=== PATIENT | female | born 1955 | race Caucasian/White ===

== ENCOUNTER 2023-01-07 14:59 | Observation (INO) | payer BC, SELFPAY ==
[2023-01-07] VITALS (12 sets, daily range): BP systolic 100–130; BP diastolic 48–93; PULSE 62–111; RESP 10–18; TEMP 36.1–36.9; O2SAT 94–100; BMI 20.9
--- NOTE | 2023-01-07 | XR_ITS ---
WS: [id number] EXAMINATION: XR tibia fibula RT 2V [id number] REASON FOR EXAM: OR PICS COMPARISON: Previous study ORDER DATE: 01/07/2023 12:00 AM FINDINGS: There is complex comminuted spiraling fractures involving the distal tibia and fibula with moderate diastases. Numerous small fragments are associated with the tibial fracture. Reduction and external f ixator placement occurring with fluoroscopy time 71.3 seconds IMPRESSION: External fixator placement.
--- NOTE | 2023-01-07 15:07 | ED_ITS ---
HPI - Trauma General: Chief Complaint: Trauma Stated Complaint: trauma from horse rt leg Time Seen by Provider: 01/07/23 15:16 Source: patient and EMS Mode of arrival: EMS Limitations: no limitations History of Present Illness: Patient was transported to the emergency department by EMS. She was riding with a group today and her horse tripped on underbrush and went down on his right side trapping her right leg in the stirrup. She states that she eventually got herself out of the stirrup but had a deformity to her leg and could not bear weight. Eventually EMS was able to make her way out to her location and immobilize it in a position of comfort. She was provided analgesics in route. She denies any other pain or discomfort. She did not hit her head or suffer loss of consciousness. Location - Extremities: Right: lower leg Associated symptoms: Denies abdominal pain, chest pain, chills, fever(s), headache(s) or syncope Review of Systems Const: Denies: fever(s) or chills Eyes: Denies: change in vision ENMT: Denies: throat pain or odynophagia Card: Denies: chest pain, palpitations, syncope or pre-syncope Resp: Denies: dyspnea, productive cough or non-productive cough GI: Denies: abdominal pain : Denies: flank pain, difficulty voiding or dysuria Musc: Reports: extremity pain and extremity swelling Skin/Breast: Denies: rash or pruritus Neuro: Denies: headache(s), numbness in extremities or weakness in extremities Physical Exam Narrative: EXAM NARRATIVE: The patient is alert and appears to be reasonably comfortable. She answers questions in a goal-directed fashion. Const: COMMON NORMALS: no acute distress, average body habitus, patient oriented x3 and alert GENERAL APPEARANCE: cooperative HENMT: COMMON NORMALS: normocephalic and atraumatic HEAD & SCALP: normocephalic and atraumatic Eye: COMMON NORMALS: Equal, round and reactive pupils present, EOMs intact bilaterally and conjunctivae normal CONJUNCTIVA: Yes conjunctivae normal PUPIL: Yes Equal, round and reactive pupils present Neck/C-Spine: COMMON NORMALS: full ROM CERVICAL SPINE: No Cervical spine tenderness, No step off deformity, No Paracervical muscle tenderness, No Paracervical spasm and No Trapezius muscle tenderness OTHER: Cervical spine is normal in appearance. She has no midline tenderness or step- off. She is able to range her neck 45 degrees to the left and right and forward bend 15 degrees and extend without any discomfort or pain. Chest: COMMONS NORMALS: normal inspection of the chest and normal palpation of entire chest wall Resp: COMMON NORMALS: normal respiratory effort, No retractions, No use of accessory muscles and clear to auscultation bilaterally AUSCULTATION: clear to auscultation bilaterally Cardio: COMMON NORMALS: regular rate, regular rhythm, No murmurs present (Cardio) and Peripheral pulses 2+ throughout RATE: regular rate RHYTHM: regular rhythm PERIPHERAL PULSES: Peripheral pulses 2+ throughout GI: COMMON NORMALS: Normal to inspection, nondistended, normoactive bowel sounds present and Soft to palpation PALPATION: Yes Soft to palpation : COMMON NORMALS: Yes no CVA tenderness BLADDER/KIDNEY EXAM: Yes no CVA tenderness Back/Pelvis: COMMON NORMALS: no CVA tenderness, thoracic and lumbar spine normal to inspection, no thoracic nor lumbar tenderness and thoraco-lumbar ROM normal PELVIS: Yes no pain with anterior-posterior compression and Yes no pain with lateral compression SACROILIAC JOINTS: Yes SI joints normal Extremity: COMMON NORMALS: capillary refill normal NARRATIVE EXTREMITY EXAM: She has deformity of the right lower extremity with a intact skin. She has good capillary refill and intact sensation GENERAL: Yes normal exam except as noted EXTREMITY IMAGE (FRONT): 1. Deformity Neuro: ALICE COMA SCALE: document GCS findings [place] coma scale eye opening: Spontaneous [place] coma scale verbal response: Orientated [place] coma scale motor response: Obey commands [place] coma scale total score: 15 COMMON NORMALS: patient oriented x3, no focal motor deficits and no sensory deficits noted SENSORIUM/ORIENTATION: Yes alert CRANIAL NERVES: Yes CN normal except as noted Course Reevaluation(s): Reevaluation #1: Dr. Shannon is in the department and will interview the patient and plan on operative fixation Time: 16:16 Consultations: Consultation #1: Consult initially was placed with orthopedics who asked us to call podiatry. Time: 16:02 Consultation #2: Called Dr. Shannon who is reviewing the films and will call us back. Time: 16:02 Consultation #3: Dr. Mosquera agreed to admit the patient for for her planned operative fixation Time: 16:37 Vital Signs: Vital signs: Vital Signs Temperature 98.4 F 01/07/23 15:00 Pulse Rate 62 01/07/23 15:00 Respiratory Rate 18 01/07/23 15:00 Blood Pressure 128/69 01/07/23 15:00 Pulse Oximetry 94 01/07/23 15:00 Oxygen Delivery Me thod Room Air 01/07/23 15:00 MDM - Trauma Medical Decision Making This patient was presented to our emergency department with history of horseback riding today no horse misstepped and went down on her hips right side and her right foot which was in her writing boot was caught in the stirrup and she was unable to extract it and suffered an injury to that right lower leg. She did not suffer any other injuries during the incident. She was transported to our emergency department by EMS in a splinted position. Her clinical exam was unremarkable for any evidence of by history or clinical exam of head injury axial spine injury or other bony injury. Her injury was limited to her right lower extremity. And intact sensation to the lower extremity extremity was neurovascular intact. Radiographs were obtained which reveal a comminuted spiral fracture of her tib fib. Consultation with Ortho and podiatry were obtained and plan will be to take her to surgery for operative fixation Lab Data I reviewed the patient's lab results. All radiology interpretation(s) finalized by discharge EKG Data EKG 1: I personally reviewed and interpreted this EKG as follows: Interpretation: Resting EKG reveals ventricular rate of 69 bpm. Normal CA interval, QRS duration, corrected QT interval. Normal axis. No acute ST-T wave changes at this time. Discharge Plan Discharge Clinical Impression: Closed fracture of multiple bones of right lower extremity Condition: Stable Prescriptions: No Action levothyroxine [Synthroid] 112 mcg tablet 112 mcg PO QAM ezetimibe 10 mg tablet 10 mg PO BEDTIME rosuvastatin 40 mg tablet 40 mg PO BEDTIME Calcium 500 500 mg calcium (1,250 mg) Tablet 500 mg PO QAM Vitamin D3 25 mcg (1,000 unit) Capsule 1,000 unit PO BEDTIME Coding Level of Care Code ED General Education Instructor for Abdirashid Kennedy
--- NOTE | 2023-01-07 15:07 | XR_ITS ---
WS: [id number] EXAMINATION: XR tibia fibula RT 2V [id number] REASON FOR EXAM: deformity COMPARISON: None available. ORDER DATE: 01/07 2023 3:08 PM FINDINGS/IMPRESSION: There is complex comminuted spiraling fractures involving the distal tibia and fibula with moderate d iastases. Numerous small fragments are associated with the tibial fracture. Otherwise the long axes o f both fractures is maintained. There is soft tissue edema..
[2023-01-07] MEDS: ondansetron 2 mg/ML SDV 2 mL 8 MG IVP (16:01)
--- NOTE | 2023-01-07 16:19 | ECG_ITS ---
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 Measurements Intervals [place] Rate: 69 P: 65 NV: 195 QRS: 42 QRSD: 100 T: 60 QT: 408 QTc: 438 Interpretive Statements SINUS RHYTHM No previous ECG available for comparison Electronically Signed On 01-07-2023 23:43:40 CDT by Baldomero Mathis M.D. [id number]
--- NOTE | 2023-01-07 16:33 | P.CONIM_ITS ---
Providers/Reason For Consult Consulting Physician/Specialty*: Teena Shepherd.P.M./podiatry Reason for Consult*: Right distal tib-fib fracture comminuted History of Present Illness History of Present Illness Natalia Durham is a 67 year old female who presented to the emergency department via EMS. According the patient she was riding with her group on horseback today. She states that her horse tripped and went down on the right side which strapped her leg in the stirrup. She stated that from that she felt immediate pain in the right lower extremity. She eventually was able to remove her leg from the stirrup but she was noted to have deformity to her right leg and she could not bear any weight. EMS arrived on scene, stabilize the right lower extremity and brought her to [facility] emergency department for further evaluation. Patient denies any loss of consciousness or head trauma during the incident. She is here on vacation from [place] with her . Review of Systems General: Reports: 10 or more systems reviewed and unremarkable except in HPI and below Const: Denies: fever(s), chills or fatigue Eyes: Denies: change in vision ENMT: Denies: sinus pain Card: Denies: chest pain, palpitations or lightheadedness Resp: Denies: dyspnea GI: Denies: abdominal pain, nausea or vomiting Musc: Reports: extremity pain, extremity swelling and limited range of motion; Denies: neck pain or back pain Skin/Breast: Reports: skin swelling Neuro: Denies: numbness in extremities Medications/Allergies Home Medications Medication Instructions Recorded Confirmed Last Taken Type calcium carbonate 500 mg calcium 500 mg PO QAM 01/07/23 01/07/23 01/07/23 History (1,250 mg) tablet cholecalciferol (vitamin D3) 25 1,000 unit PO BEDTIME 01/07/23 01/07/23 01/06/23 History mcg (1,000 unit) capsule (Vitamin D3) ezetimibe 10 mg tablet 10 mg PO BEDTIME 01/07/23 01/07/23 01/06/23 History levothyroxine 112 mcg tablet 112 mcg PO QAM 01/07/23 01/07/23 01/07/23 History (Synthroid) rosuvastatin 40 mg tablet 40 mg PO BEDTIME 01/07/23 01/07/23 01/06/23 History Allergies Allergy/AdvReac Type Severity Reaction Status Date / Time No Known Allergies Allergy Verified 01/07/23 15:03 Vitals/I&O/Wt Last Vital Signs Temp 98.4 F 01/07/23 15:00 Pulse 62 01/07/23 15:00 Resp 18 01/07/23 15:00 BP 128/69 01/07/23 15:00 Pulse Ox 94 01/07/23 15:00 O2 Del Method Room Air 01/07/23 15:00 Weight last 48 hrs Weight 130 lb Physical Exam Narrative: BELOW IS A FOCUSED LOWER EXTREMITY EXAM GENERAL: A&O x 3 VASCULAR: DP/PT pulses palpable 2/4 with CFT intact, <3seconds to distal digits DERMATOLOGICAL: Skin turgor and temperature is within normal limits. No interdigital maceration noted. No tenting of the skin noted MUSCULOSKELETAL: Right lower extremity angular deformity of distal leg secondary to trauma. Full musculoskeletal exam deferred secondary to posttraumatic state NEUROLOGICAL: Neurological sensation to the affected foot and ankle is present through L4-S1 dermatomes to light touch IMAGING: Tib-fib x-rays of the right lower extremity taken in the emergency department were person interpreted by me which show oblique distal tibia and fibular fracture with centralized comminution. Ankle mortise appears congruent. Small alex posteriorly on the distal tibia. A&P Assessment and plan (1) Closed right tibial fracture: (2) Closed right fibular fracture: (3) Pain in right ankle: Plan LABS AND CLINICAL INFO: Labs and vitals reviewed VSS PLAN: -Patient is n.p.o. since 8 AM this morning -Gross stability of right lower extremity fracture necessitating stabilization via external fixation -Lengthy discussion was had with patient patient's at bedside in the emergency department in regards to stabilization of right lower extremity fracture via external fixation. Patient is here on vacation from [place]. We discussed stabilization of the fracture via external fixation and prompt return to [place] for establishment with orthopedics for definitive fixation. This allows the patient to return home to assume care affording her recovery at home. -Plan for postop admission for postoperative pain control with likely discharge tomorrow morning Coding Level of Care Code Acute Code for Chg Fwd Diagnoses Closed right tibial fracture S82.201A Closed right fibular fracture S82.401A Pain in right ankle M25.571
--- NOTE | 2023-01-07 16:55 | ANES.PREANE2 ---
Pre-Anesthetic Assessment Height/Weight: Height 1.68 m Weight 58.967 kg Temp Pulse Resp BP Pulse Ox O2 Del Method 98.4 F 62 18 128/69 94 Room Air 01/07/23 15:00 01/07/23 15:00 01/07/23 15:00 01/07/23 15:00 01/07/23 15:00 01/07/23 15:00 Ex-fix placement Familial anesthetic complications: None Was Beta Thomas taken within 24 hours: N/A Was Clonidine taken within 24 hours: N/A Last intake: > 8hrs peanut butter and jelly bagel at 0800 Sips of water a few hours ago, but still feeling nauseated Social No alcohol and No tobacco Exam alert, oriented x 3, clear to auscultation bilaterally and regular rate & rhythm Airway Mallampati: Class II Dentition: full Metabolic Hyperlipidemia and Thyroid Disease Anesthetic Plan ASA status: 2 Anesthesia: General Risk of > 500 ml blood loss (7ml/kg in children): No Medications/Allergies Home Medications Medication Instructions Recorded Confirmed Last Taken Type calcium carbonate 500 mg calcium 500 mg PO QAM 01/07/23 01/07/23 01/07/23 History (1,250 mg) tablet cholecalciferol (vitamin D3) 25 1,000 unit PO BEDTIME 01/07/23 01/07/23 01/06/23 History mcg (1,000 unit) capsule (Vitamin D3) ezetimibe 10 mg tablet 10 mg PO BEDTIME 01/07/23 01/07/23 01/06/23 History levothyroxine 112 mcg tablet 112 mcg PO QAM 01/07/23 01/07/23 01/07/23 History (Synthroid) rosuvastatin 40 mg tablet 40 mg PO BEDTIME 01/07/23 01/07/23 01/06/23 History Allergies Allergy/AdvReac Type Severity Reaction Status Date / Time No Known Allergies Allergy Verified 01/07/23 15:03 Data Anesthesia Cardiac Studies: No Data to Display
[2023-01-07] MEDS: fentaNYL 50 mcg/mL INJ 2mL 100 MCG IVP (17:09)
[2023-01-07] MEDS: scopolamine 1.5 Patch 1 PATCH TRANSDERMA (17:09)
[2023-01-07] MEDS: sodium chloride 0.9% 1,000 ML 30 ML IV (17:10)
--- NOTE | 2023-01-07 17:10 | P.HP_ITS ---
Providers/Chief Complaint Admitting Physician: Adelita Alex MD Chief Complaint: trauma from horse rt leg History of Present Illness Natalia Durham is a 67 year old female who suffered injury to her leg today while she was out risind. She states that her horse tripped and went down on the right side which strapped her leg in the stirrup.? She stated that from that she felt immediate pain in the right lower extremity.? She eventually was able to remove her leg from the stirrup but she was noted to have deformity to her right leg and she could not bear any weight.? EMS arrived on scene, stabilize the right lower extremity and brought her to [facility] emergency department for further evaluation.? Patient denies any loss of consciousness or head trauma during the incident. She is able to move her head and neck without restrcitions Review of Systems General: Reports: 10 or more systems reviewed and unremarkable except in HPI and below Const: Denies: fever(s), chills or body aches Eyes: Denies: change in vision, blurry vision or photophobia ENMT: Reports: hoarseness; Denies: throat pain, enlarged tonsils, odynophagia or nasal congestion Card: Denies: chest pain, palpitations, irregular heart rhythm, edema, swelling of feet/ankles, lightheadedness, pre-syncope, dyspnea on exertion or orthopnea Resp: Denies: dyspnea, productive cough, non-productive cough, wheezing, stridor, pain on inspiration, change in phlegm color, hemoptysis or chest congestion GI: Denies: abdominal pain, nausea, vomiting, hematemesis, coffee ground emesis, dysphagia, heartburn, diarrhea, constipation, GI cramping, change in stool character, hematochezia or melena : Denies: flank pain, difficulty voiding, dysuria, urinary frequency, ur inary urgency, urinary hesitancy or hematuria Musc: Denies: neck pain, back pain, extremity pain, joint swelling, joint warmth or deformity Neuro: Denies: headache(s), numbness in extremities, weakness in extremities, sensory changes, difficulty walking, frequent falls, dizziness, vertigo, behavioral changes, Slurred speech present or seizure-like activity Psych: Denies: anxiety, depression, suicidal ideation or homicidal ideation Endo: Denies: polyuria, polydipsia, tired all the time, cold intolerance or hot flashes [place]/Lymph: Denies: easy bruising or easy bleeding Medications/Allergies Home Medications Medication Instructions Recorded Confirmed Last Taken Type calcium carbonate 500 mg calcium 500 mg PO QAM 01/07/23 01/07/23 01/07/23 History (1,250 mg) tablet cholecalciferol (vitamin D3) 25 1,000 unit PO BEDTIME 01/07/23 01/07/23 01/06/23 History mcg (1,000 unit) capsule (Vitamin D3) ezetimibe 10 mg tablet 10 mg PO BEDTIME 01/07/23 01/07/23 01/06/23 History levothyroxine 112 mcg tablet 112 mcg PO QAM 01/07/23 01/07/23 01/07/23 History (Synthroid) rosuvastatin 40 mg tablet 40 mg PO BEDTIME 01/07/23 01/07/23 01/06/23 History Allergies Allergy/AdvReac Type Severity Reaction Status Date / Time No Known Allergies Allergy Verified 01/07/23 15:03 PFSH Acute PFSH: Medical History (Updated 01/07/23 @ 17:15 by Adelita Alex MD) Dyslipidemia Hypothyroid Vitals/I&O/Wt Last Vital Signs Temp 98.4 F 01/07/23 15:00 Pulse 62 01/07/23 15:00 Resp 18 01/07/23 15:00 BP 128/69 01/07/23 15:00 Pulse Ox 94 01/07/23 15:00 O2 Del Method Room Air 01/07/23 15:00 Weight last 48 hrs Weight 58.967 kg Physical Exam Narrative: General: No acute distress, AO x3 HEENT: PERRLA, pupils bilaterally equal and reactive, pallors not present Chest: Normal vesicular breath sounds, no added sounds, equal good air entry bilaterally CVS: S1-S2 regular, no murmurs, no tachycardia, no gallops, no rubs Abdomen: Soft, nontender, no organomegaly, bowel sounds present Neuro: No focal deficits, no facial deformity, AO x3, power 5/5 in all limbs Extremities: right leg externally rotated A&P Assessment and plan (1) Closed right tibial fracture: (2) Closed right fibular fracture: Plan Patient brought to the hospital with injuries susteinaed while horseback ridine as above She is being taken to the OR currently for placement of external fixator Podiatry consulted from ER Stat labs including CBC, CMP, INR ordered per my request from ER chech CXR, X ray C epine, thoracolumbar spine and pelvis for any additional bony injuries. Patient is seen in the pre op holding area prn morphine and toraoldol for pain management Further orders dependent on clinical course after surgery- patient being taken urgently for procedure now Attestations Medical Necessity Statement*: Less than 2 midnght stay anticipated for above care Coding Level of Care Code Acute Code for g Fwd Diagnoses Closed right tibial fracture S82.201A Closed right fibular fracture S82.401A
--- NOTE | 2023-01-07 17:11 | XRR_ITS ---
PROCEDURE INFORMATION: Exam: XR Chest Exam date and time: 01/07/2023 5:38 PM Age: 67 years old Clinical indication: Injury or trauma; Fall; Blunt trauma (contusions or hematomas); Additional info: Evaluate for thoracic injuries TECHNIQUE: Imaging protocol: Radiologic exam of the chest. Views: 1 view. COMPARISON: No relevant prior studies available. FINDINGS: Lungs: Lungs are clear bilaterally. Pleural spaces: No pleural effusion. No pneumothorax. Heart/Mediastinum: The cardiac silhouette is mildly enlarged. Mediastinal contours are unremarkable. Vasculature: Vascular calcifications in the aorta. Bones/joints: Evaluation of the thoracic spine is limited due to single AP view. There is otherwise no acute fracture. XR/XR chest 1V portable [id number] IMPRESSION: 1. No acute cardiopulmonary process. 2. Evaluation of the thoracic spine is limited due to single AP view. There is otherwise no acute fracture. CT scan recommended if there is continuing clinical concern for fracture. 3. CT scan of the chest with contrast would be recommended if there is continuing clinical concern for thoracic injury. 4. Incidental/nonacute findings are listed in the report.
--- NOTE | 2023-01-07 17:11 | XRR_ITS ---
PROCEDURE INFORMATION: Exam: XR Thoracic Spine Exam date and time: 01/07/2023 7:28 PM Age: 67 years old Clinical indication: Injury or trauma; Fall; Blunt trauma (contusions or hematomas); Additional info: Evaluate for fractures, fall from horseback TECHNIQUE: Imaging protocol: Radiologic exam of the thoracic spine. Views: 3 views. COMPARISON: CR XR cervical spine 3V* [id number] 01/07/2023 5:40 PM FINDINGS: Bones/joints: No acute fracture. No dislocation. Bones are diffusely osteopenic. Mild degenerative changes in the spine. Soft tissues: No paravertebral soft tissue abnormality. No radiopaque foreign body.No acute fracture. Lungs: Visualized lungs are clear. Vasculature: Vascular calcifications in the aorta. XR/XR thoracic spine 2V [id number] IMPRESSION: 1. No acute fracture of the thoracic spine. CT scan would be recommended if there is continuing clinical concern for fracture. 2. Mild degenerative changes in the spine. 3. Incidental/nonacute findings are listed in the report.
--- NOTE | 2023-01-07 17:11 | XRR_ITS ---
PROCEDURE INFORMATION: Exam: XR Lumbosacral Spine Exam date and time: 01/07/2023 7:32 PM Age: 67 years old Clinical indication: Injury or trauma; Fall; Blunt trauma (contusions or hematomas); Additional info: Evalaute for fracture, fall from horseback TECHNIQUE: Imaging protocol: Radiologic exam of the lumbosacral spine. Views: 2 or 3 views. COMPARISON: CR (CHEST, ) 01/07/2023 7:28 PM FINDINGS: Bones/joints: 5 [id number] vertebral bodies. The right and left sacroiliac joints are unremarkable. Vertebral body height is maintained. No subluxation. Bones are diffusely osteopenic. [id number] multilevel degenerative changes in the visualized spine. No acute fracture. Soft tissues: No paravertebral soft tissue abnormality. No radiopaque foreign body. Vasculature: Vascular calcifications in the aorta. XR/XR lumbar spine 2-3V* [id number] IMPRESSION: 1. No acute fracture of the lumbar spine. CT scan would be recommended if there is continuing clinical concern for fracture. 2. [id number]-lx-ikoqewzi multilevel degenerative changes in the visualized spine. 3. Incidental/nonacute findings are listed in the report.
--- NOTE | 2023-01-07 17:12 | XRR_ITS ---
PROCEDURE INFORMATION: Exam: XR Cervical Spine Exam date and time: 01/07/2023 5:40 PM Age: 67 years old Clinical indication: Injury or trauma; Fall; Blunt trauma; Additional info: Evaluate for fractures, fall from horseback TECHNIQUE: Imaging protocol: Radiologic exam of the cervical spine. Views: 2 or 3 views. COMPARISON: CR (CHEST, ) 01/07/2023 5:38 PM FINDINGS: Bones/joints: The cervical spine is visualized to the C6-C7 disc level on the lateral image. There is no acute fracture in the visualized cervical spine, however injury in the lower cervical spine and cervicothoracic junction cannot be ruled out. Vertebral body height is maintained. No subluxation.Vertebrae: Bones are diffusely osteopenic. Soft tissues: No prevertebral soft tissue swelling. No radiopaque foreign body. Lungs: Visualized lungs are clear. Vasculature: Vascular calcifications in the aorta. XR/XR cervical spine 3V* [id number] IMPRESSION: 1. The cervical spine is visualized to the C6-C7 disc level on the lateral image. There is no acute fracture in the visualized cervical spine, however injury in the lower cervical spine and cervicothoracic junction cannot be ruled out. Further evaluation with CT scan of the cervical spine is recommended if there is continuing clinical concern for fracture. 2. Incidental/nonacute findings are listed in the report.
[2023-01-07] MEDS: ondansetron 2 mg/ML SDV 2 mL 4 MG IVP (17:13)
--- NOTE | 2023-01-07 17:19 | ANES.PROC ---
Anesthesia Procedures Procedure/Date: 01/07/23 Nerve Block ^: Nerve Block 1: Main Anesthesia: general anesthesia Time Out Performed: Yes Consent: requested by attending/covering physician, from patient, from other, risks and benefits reviewed and patient agrees to proceed Nerve block location: popliteal (R) Anesthesia monitors applied: pulse oximetry, EKG, BP cuff and oxygen Nerve block position: supine Anesthetic Used: ropivicaine 0.5% (30 ml) and with decadron (4 mg) Ultrasound used to: recognize landmarks Nerve Stimulator Used?: No Interscalene/Femoral BLK: 4 stimuplex 21 g needle used for position and inplane approach, visualize local anesthetic spread and no vascular puncture identified Injection: neg aspiration of heme Patient Tolerated Procedure: well and no complications Complications: none Additional Comments: Performed per surgeon request
--- NOTE | 2023-01-07 17:19 | W.PM.OPSUD ---
Surgery/Procedure H&P Update DATE OF PROCEDURE: January 07, 2023 DATE H&P PERFORMED: 01/07/23 CHANGES TO PREVIOUS DOCUMENTATION: No changes PLANNED PROCEDURE: Operation Date: 01/07/23 17:30 Proposed Procedures p External Fixator Lower Extremity External Fixator Ankle(Right) - Prasanth Shannon DPM
[2023-01-07] MEDS: metoclopramide 5 mg/mL SDV 2 mL 10 MG IVP (17:22)
[2023-01-07 17:38] LABS: Basophils # 0.1 10^3/uL (0.0-0.1); Basophils % 0.6 %; Eosinophils % 0.2 %; Lymphocytes # 0.8 10^3/uL (0.8-4.8); Lymphocytes % 6.7 %; Mean Corpuscular HGB Conc 33.5 g/dL (30-55); Mean Corpuscular Hemoglobin 31.8 pg (27-33); Mean Corpuscular Volume 94.8 fl (85-98); Mean Platelet Volume 10.2 fL (7.4-10.4); Monocytes # 0.8 10^3/uL (0.2-0.9); Neutrophils # 10.71 10^3/uL (1.8-7.7); Neutrophils % 86.2 %; Nucleated Red Blood Cells % 0 %; Platelet Count 193 10^3/cmm (157-399); Red Blood Count 4.22 10^6/uL (3.85-5.65); Red Cell Distribution Width 11.8 % (12.1-15.1); White Blood Count 12.43 10^3/uL (3.29-11.43)
[2023-01-07] MEDS: ceFAZolin 2,000 MG in sodium chloride 0.9% (plus) 50 ML 100 MG IV (17:48)
[2023-01-07 17:54] LABS: INR 0.98 (0.8-1.2)
[2023-01-07 17:59] LABS: Alanine Aminotransferase 19 U/L (0-33); Albumin Level 3.9 g/dL (3.5-5.2); Alkaline Phosphatase 29 U/L (35-105); Anion Gap 11.9 (5-19); Aspartate Amino Transferase 24 U/L (0-32); Blood Urea Nitrogen 13 mg/dL (8-23); Calcium 8.5 mg/dL (8.5-10.5); Carbon Dioxide 25 mmol/L (22-29); Chloride 107 mmol/L (98-107); Globulin 2.6 g/dL (1.3-4.6); Glomerular Filtration Rate 99.7 mL/min (90-130); Glucose 114 mg/dL (65-115); Osmolality Calculated 291 mOsm/kg (285-295); Potassium 3.9 mmol/L (3.5-5.1); Sodium 140 mmol/L (136-145); Total Bilirubin 0.5 mg/dL (0.15-1.2); Total Protein 6.5 g/dL (6.6-8.7)
[2023-01-07] MEDS: BUPivacaine 0.5% INJ 30 mL INJECTION (18:52)
--- NOTE | 2023-01-07 19:17 | P.BOP_ITS ---
Date of procedure: 01/07/2023 Surgeon name: Dr. Prasanth Shannon D.P.M. 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
--- NOTE | 2023-01-07 19:22 | CTR_ITS ---
PROCEDURE INFORMATION: Exam: CT Right Lower Extremity Without Contrast; Lower Leg Exam date and time: 01/07/2023 8:38 PM Age: 67 years old Clinical indication: Screening exam; Post op ex fix application evaluate fracture pattern, evaluate from tibial tuberosity down to ankle joint; Prior surgery; Surgery date: 3-7 days post-operative; Surgery type: Lower leg TECHNIQUE: Imaging protocol: CT of the right lower extremity without contrast was performed. Exam focused on the lower leg. Sagittal and coronal reformatted images were created and reviewed. Radiation optimization: All CT scans at this facility use at least one of these dose optimization techniques: automated exposure control; mA and/or kV adjustment per patient size (includes targeted exams where dose is matched to clinical indication); or iterative reconstruction. REPORTING DATA: Count of CT and Cardiac NM exams in prior 12 months: This patient has received 0 known CTs and 0 known cardiac nuclear medicine studies in the 12 months prior to the current study. COMPARISON: CR XR tibia fibula RT 2V [id number] 01/07/2023 3:28 PM RADIATION DOSE METRICS: Total DLP (mGy-cm): 570.69 FINDINGS: Tubes, catheters and devices: Interval placement of an external fixation device, of the proximal pins extend the through the mid diaphysis of the right tibia. The distal pin extends through the calcaneus. Bones/joints: Accessory ossicle adjacent to the cuboid bone. No dislocation. Bones are mildly osteopenic. Mildly comminuted and displaced spiral fracture of the distal right tibia extending from the distal diaphysis of the right tibia to the posterior subarticular surface. There is lateral displacement of approximately 7 mm of the distal fracture fragment. There is also anterior displacement and impaction of a butterfly fragment at the posterior margin of the fracture (series 3, images 176-204). Small avulsion fracture with multiple small displaced bone fragments at the anterolateral right tibial articular surface (series 3, images 205-211). Comminuted, mildly displaced oblique fracture of the distal metadiaphysis of the right fibula. Posterior displacement of approximately 5 mm and medial displacement of approximately 5 mm of the distal fracture fragment. Multiple tiny bone fragments at the fracture site (series 3, images 160-186). No dislocation. Normal bone mineralization. Accessory ossicle adjacent to the cuboid bone. No joint effusion. Soft tissues: Mild soft tissue swelling at the anterior aspect of the mid right lower leg. No radiopaque foreign body. CT/CT lower leg RT wo con* [id number] IMPRESSION: 1. Mildly comminuted and displaced spiral fracture of the distal right tibia extending from the distal diaphysis of the right tibia to the posterior subarticular surface. There is lateral displacement of approximately 7 mm of the distal fracture fragment. There is also anterior displacement and impaction of a butterfly fragment at the posterior margin of the fracture. 2. Small avulsion fracture with multiple small displaced bone fragments at the anterolateral right tibial articular surface. 3. Comminuted, mildly displaced oblique fracture of the distal metadiaphysis of the right fibula. Posterior displacement of approximately 5 mm and medial displacement of approximately 5 mm of the distal fracture fragment. Multiple tiny bone fragments at the fracture site. 4. Interval placement of an external fixation device, of the proximal pins extend the through the mid diaphysis of the right tibia. The distal pin extends through the calcaneus. 5. Mild soft tissue swelling at the anterior aspect of the mid right lower leg. 6. Incidental/nonacute findings are listed in the report.
[2023-01-07] MEDS: meperidine 50 mg/mL INJ 12.5 MG IVP (19:29)
[2023-01-07] MEDS: cetylpyridinium Lozenge 1 EACH MUCOUS MEM (20:15)
[2023-01-07] MEDS: ezetimibe 10 mg Tablet PO (20:15)
[2023-01-07] MEDS: atorvastatin 40 mg Tablet 80 MG PO (20:17)
[2023-01-07 20:34] LABS: Glucose Point of Care 115 mg/dL (70-110)
--- NOTE | 2023-01-07 21:19 | P.OP_ITS ---
Operative Report Date of procedure: January 07, 2023 Pre-op diagnosis: Right distal tibia and fibular fracture Post-op diagnosis: same Post-op findings: Comminuted distal tibia and fibular fracture Procedure done: Application multiplanar external fixator right lower extremity CPT 30272 Implants: Multiplanar external fixator Eric Surgeon: Prasanth Shannon DPM Corporate Legal Secretary: none Estimated blood loss: less than 10cc Complications: none Findings: see above Procedure: Patient is a 67 year old female who sustained a distal tibia and fibular fracture to the right ankle on 01/07/2023 while horseback riding. The horse tripped and fell and her leg was caught in the stirrup resulting in the fracture. The extent of the fracture and its inherent instability warrants external fixation.? A discussion regarding the procedure, including risks and complications has been had with the patient.? Written and verbal consent have been obtained.? All patient questions have been answered to the patient's sati sfaction.? No written or verbal guarantees have been given or implied. Procedure: The patient has been NPO since 8am this morning. The history has been reviewed and the history and physical is current. The signed consent was confirmed and placed in the patient chart. Patient imaging has been reviewed and is consistent with the diagnosis. Under mild sedation, the patient was brought into the oper ating room and placed on the table in the supine position. IV antibiotics were given by the anesthesia team as preoperative surgical prophylaxis.? The patient received a popliteal block by the anesthesia department general sedation was then performed by the anesthesia team. The operative extremity was then prepped and draped in the usual fashion. After preparation, the following procedure was then performed. Attention was directed to the right ankle where there was noted to be external rotation deformity at the mid leg.? Given these findings it was determined that external fixation was the patient's best option to stabilize the injury. A #15 blade was used to make 2 small stab incisions over the anteromedial surface of the tibia.? Mosquito hemostat was used to bluntly dissect down to the level of bone.? Next, 2 tibial half pins were driven into the anterior medial tibia from anterior to posterior.? Next, a transfixation pin was driven in the perpendicular plane to the tibial half pins from lateral to medial through the calcaneus.? This was done after a small stab incision was made on the lateral and medial aspect of the calcaneus.? Blunt dissection was carried down to the level of the lateral wall of the calcaneus before the transfixing pin was driven from lateral to medial until it was appropriately positioned in the body of the calcaneus.? This was visualized on calcaneal axial view.? Next, a home based assistant was attached to the tibial half pins.? Under direct visualization of C-arm fluoroscopy the right ankle fracture was manually reduced to a more satisfactory anatomical alignment.?? With the ankle reduced to a satisfactory position, the home based assistant was then fixated to a carbon fiber bar that was then fixated to the transaxial pin of the calcaneus.? This was performed on both the medial and lateral aspect of the right lower extremity in standard delta frame fashion.? Good positioning and alignment of the fracture fragments was visualized on C-arm imaging as well as clinically.? Attention was then directed to the dorsomedial aspect of the first metatarsal.? A #15 blade was used to make a small stab incision over the midshaft.? Blunt dissection was carried down to the level of bone.? A half pin was then driven into the dorsal medial aspect of the first metatarsal to provide stable triplanar fixation about the right ankle.? This was done to prevent further coronal plane movement of the fracture sites.? The half pin of the first metatarsal was then fixated to the delta frame via carbon fiber bar.? Good positioning of the pins and multiplanar fixator was visualized on C- arm imaging. Next, the frame was tightened down appropriately and was noted to be a solid fixation.? The pin sites were dressed with betadine soaked 4x4 gauze, dry 4 x 4 gauze, Kerlix before the leg was wrapped in 4 inch James bandage. The patient tolerated the procedure and anesthesia well and without complication. The patient was transported from the operating room to the recovery room with vital signs stable and vascular status intact to all digits of the right foot. The patient was instructed to remain non-weightbearing to the operative extremity, to keep surgical dressing clean, dry and intact. The patient will be transferred back to the floor once anesthesia criteria is met. I will continue to round on and follow the patient in the inpatient setting and provide recommendations to stabilize the patient for discharge.
[2023-01-08] VITALS (8 sets, daily range): BP systolic 102–114; BP diastolic 54–65; PULSE 66–85; RESP 16–19; TEMP 36.4–37; O2SAT 93–95
[2023-01-08] MEDS: levothyroxine 112 mcg Tablet PO (05:06)
[2023-01-08 06:44] LABS: Basophils % 0.1 %; Hematocrit 37.7 % (36-47); Lymphocytes # 0.4 10^3/uL (0.8-4.8); Lymphocytes % 5.5 %; Mean Corpuscular HGB Conc 33.2 g/dL (30-55); Mean Corpuscular Hemoglobin 31.7 pg (27-33); Mean Corpuscular Volume 95.7 fl (85-98); Mean Platelet Volume 10.8 fL (7.4-10.4); Monocytes # 0.4 10^3/uL (0.2-0.9); Monocytes % 5.6 %; Neutrophils # 6.32 10^3/uL (1.8-7.7); Neutrophils % 88.4 %; Nucleated Red Blood Cells % 0 %; Platelet Count 182 10^3/cmm (157-399); Red Blood Count 3.94 10^6/uL (3.85-5.65); Red Cell Distribution Width 11.9 % (12.1-15.1); White Blood Count 7.15 10^3/uL (3.29-11.43)
[2023-01-08 07:05] LABS: Alanine Aminotransferase 16 U/L (0-33); Albumin Level 3.6 g/dL (3.5-5.2); Alkaline Phosphatase 29 U/L (35-105); Anion Gap 13.5 (5-19); Aspartate Amino Transferase 24 U/L (0-32); Blood Urea Nitrogen 11 mg/dL (8-23); Calcium 8.7 mg/dL (8.5-10.5); Carbon Dioxide 24 mmol/L (22-29); Chloride 105 mmol/L (98-107); Globulin 2.6 g/dL (1.3-4.6); Glomerular Filtration Rate 99.7 mL/min (90-130); Glucose 146 mg/dL (65-115); Osmolality Calculated 288 mOsm/kg (285-295); Potassium 4.5 mmol/L (3.5-5.1); Sodium 138 mmol/L (136-145); Total Bilirubin 0.5 mg/dL (0.15-1.2); Total Protein 6.2 g/dL (6.6-8.7)
--- NOTE | 2023-01-08 07:39 | PM.PN ---
Subjective Subjective: Patient seen at bedside this morning. Resting comfortably. Status post external fixator application for right lower extremity. Pain is well controlled. Vitals/I&O/Wt Last Vital Signs Temp 98.0 F 01/08/23 07:33 Pulse 73 01/08/23 07:33 Resp 16 01/08/23 07:33 BP 102/57 01/08/23 07:33 Pulse Ox 95 01/08/23 07:33 O2 Del Method Room Air 01/08/23 07:33 O2 Flow Rate 3 01/07/23 19:20 01/07/23 01/08/23 01/08/23 22:59 06:59 14:59 Intake Total 1070 / 1070 Output Total 900 / 905 Balance 1065 / 1065 -900 / 165 Weight last 48 hrs Weight 130 lb Physical Exam Narrative: BELOW IS A FOCUSED LOWER EXTREMITY EXAM GENERAL: A&O x 3 VASCULAR: Capillary refill intact to distal digits of right foot DERMATOLOGICAL: Postsurgical dressing clean, dry, intact with no strikethrough noted. MUSCULOSKELETAL: Multiplane external fixator applied to right lower extremity NEUROLOGICAL: Neurological sensation to the affected foot and ankle is present through L4-S1 dermatomes to light touch IMAGING: Tib-fib x-rays of the right lower extremity taken in the emergency department were person interpreted by me which show oblique distal tibia and fibular fracture with centralized comminution. Ankle mortise appears congruent. Small alex posteriorly on the distal tibia. Data 01/08/23 05:56 01/08/23 05:56 A&P Assessment and plan (1) Closed right tibial fracture: (2) Closed right fibular fracture: (3) Pain in right ankle: Plan LABS AND CLINICAL INFO: Labs and vitals reviewed VSS PLAN: -Okay for diet -Status post right lower extremity external fixator application -Lengthy discussion was had with patient patient's at bedside. Patient is here on vacation from [place]. We discussed stabilization of the fracture via external fixation and prompt return to [place] for establishment with orthopedics for definitive fixation. This allows the patient to return home to assume care, affording her recovery at home. This is with the patient and her desire at this time. -Nonweightbearing to right lower extremity -Discharge plan: Patient will need crutches/walker for nonweightbearing status upon discharge from hospital. Discussed with patient and patient's as well the bedside commode may be the best option for the drive home. Appreciate physical therapy recommendations. Patient will also need to fill out any pertinent documentation in order to release records to her future care provider in [place]. Prescription for pain medication as well as antinausea medication sent to main campus pharmacy. If we can get these brought meds to bed they will be very beneficial to the patient. Patient is okay to discharge home from podiatry standpoint Attestations Medical Necessity Statement*: See hospitalist note Coding Level of Care Code Acute Code for Chg Fwd Diagnoses Closed right tibial fracture S82.201A Closed right fibular fracture S82.401A Pain in right ankle M25.571
[2023-01-08] MEDS: oxyCODONE-APAP 10-325 mg Tablet 1 TAB PO (07:56)
[2023-01-08] MEDS: pantoprazole DR 40 mg Tablet PO (07:56)
--- NOTE | 2023-01-08 09:16 | PC.CHAP ---
Pastoral Care Encounter/Spiritual Assessment Type of Contact [] Declined tuberculosis specialist visit [] Patient/Family/Request visit [] Outpatient visit [] Follow-up visit [] Physician referral [] Code/Alert [x] Routine visit [] Staff referral [] Actively dying [] Patient sleeping [] Family support [] [] Out of room [] Palliative care [] [] Receiving care in room [] Pre-surgical visit [] Trauma [] Long length of stay [] ICU visit [] Other: Relational/Emotional Strength [x] Patient feels connected with others/family/visitors/staff [] Distress [] Loneliness/isolation [] Abandonment Spirituality of Patient [x] Person of Sera [] Attends Pentecostalism of their Sera [x] Believes in Prayer [] Reads Bible or Uatsdin materials [] There are Spiritual issues to be addressed 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 Interventions [x] Prayer [x] Active listening [] Non-anxious presence [x] Spiritual/emotional support [] Crisis/trauma care [] Spiritual counseling [] Bereavement support [] Provided bereavement packet [] Provided Bible/devotional materials [] Provided toy/stuffed animal, coloring book to patient or family member [] Provided Communion [] Anointing/[place] [] Salvation [x] Completed spiritual assessment [] Other: Impact on Illness or Injury [] Angry [] Fearful [] Anxious [] Often cries [] Exhaustion [] Unable to work [] Unable to attend sabianism [] Unable to walk/stand [] Unable to read [] Unable to drive [] Unable to eat/drink [] Unable to sleep [] Unable to be with family [] Patient intubated [] Other: Summary Time spent with patient 10 min
--- NOTE | 2023-01-08 10:37 | PM.DCS ---
Discharge Providers Date of Admission: 01/07/23 16:42 Date of Discharge: January 08, 2023 Attending Provider at Admission: Adelita Alex MD Attending Provider at Discharge: Adelita Alex MD Diagnoses at Discharge Discharge Diagnosis (1) Closed right tibial fracture: Status: Acute (2) Closed right fibular fracture: Status: Acute (3) Pain in right ankle: Status: Acute Reason for Visit Reason for Visit: trauma from horse rt leg Hospital Course Hospital Course 67 year old lady who presented to the hospital after injury sustained during horseback riding. She states that her horse tripped and went down on the right side which strapped her leg in the stirrup.? She stated that from that she felt immediate pain in the right lower extremity.? She eventually was able to remove her leg from the stirrup but she was noted to have deformity to her right leg and she could not bear any weight.? EMS arrived on scene, stabilize the right lower extremity and brought her to [facility] emergency department for further evaluation.?She was found to have Right distal tibia and fibular fracture for which she underwent Application multiplanar external fixator right lower extremity on 01/07/23. She tolerated the procedure well. No immediate perioperative complications. She is being discharged today in stable condition. Pain medication has been prescribed from podiatry. She will be returning to [place] where she lives and establish subsequent follow up there locally. Physical Exam Narrative: General: No acute distress, AO x3 HEENT: PERRLA, pupils bilaterally equal and reactive, pallors not present Chest: Normal vesicular breath sounds, no added sounds, equal good air entry bilaterally CVS: S1-S2 regular, no murmurs, no tachycardia, no gallops, no rubs Abdomen: Soft, nontender, no organomegaly, bowel sounds present Neuro: No focal deficits, no facial deformity, AO x3, power 5/5 in all limbs Discharge Data Studies Completed and Pending Completed Studies During Hospitalization Category Date Time Status CT lower leg RT wo con* [id number] Routine Cat Scan 01/07/23 19:22 Completed CXRP [XR chest 1V portable [id number]] Routine Exams 01/07/23 17:11 Completed XR cervical spine 3V* [id number] Routine Exams 01/07/23 17:12 Completed XR lumbar spine 2-3V* [id number] Routine Exams 01/07/23 17:11 Completed XR thoracic spine 2V [id number] Routine Exams 01/07/23 17:11 Completed XR tibia fibula RT 2V [id number] Routine Exams 01/07/23 Completed XR tibia fibula RT 2V [id number] Stat Exams 01/07/23 15:07 Completed Radiology Impressions Chest X-Ray 01/07/23 17:11 IMPRESSION: 1. No acute cardiopulmonary process. 2. Evaluation of the thoracic spine is limited due to single AP view. There is otherwise no acute fracture. CT scan recommended if there is continuing clinical concern for fracture. 3. CT scan of the chest with contrast would be recommended if there is continuing clinical concern for thoracic injury. 4. Incidental/nonacute findings are listed in the report. Lumbar Spine X-Ray 01/07/23 17:11 IMPRESSION: 1. No acute fracture of the lumbar spine. CT scan would be recommended if there is continuing clinical concern for fracture. 2. [id number] multilevel degenerative changes in the visualized spine. 3. Incidental/nonacute findings are listed in the report. Thoracic Spine X-Ray 01/07/23 17:11 IMPRESSION: 1. No acute fracture of the thoracic spine. CT scan would be recommended if there is continuing clinical concern for fracture. 2. Mild degenerative changes in the spine. 3. Incidental/nonacute findings are listed in the report. Cervical Spine X-Ray 01/07/23 17:12 IMPRESSION: 1. The cervical spine is visualized to the C6-C7 disc level on the lateral image. There is no acute fracture in the visualized cervical spine, however injury in the lower cervical spine and cervicothoracic junction cannot be ruled out. Further evaluation with CT scan of the cervical spine is recommended if there is continuing clinical concern for fracture. 2. Incidental/nonacute findings are listed in the report. Lower Extremity CT 01/07/23 19:22 IMPRESSION: 1. Mildly comminuted and displaced spiral fracture of the distal right tibia extending from the distal diaphysis of the right tibia to the posterior subarticular surface. There is lateral displacement of approximately 7 mm of the distal fracture fragment. There is also anterior displacement and impaction of a butterfly fragment at the posterior margin of the fracture. 2. Small avulsion fracture with multiple small displaced bone fragments at the anterolateral right tibial articular surface. 3. Comminuted, mildly displaced oblique fracture of the distal metadiaphysis of the right fibula. Posterior displacement of approximately 5 mm and medial displacement of approximately 5 mm of the distal fracture fragment. Multiple tiny bone fragments at the fracture site. 4. Interval placement of an external fixation device, of the proximal pins extend the through the mid diaphysis of the right tibia. The distal pin extends through the calcaneus. 5. Mild soft tissue swelling at the anterior aspect of the mid right lower leg. 6. Incidental/nonacute findings are listed in the report. Laboratory Results WBC 7.15 10^3/uL (3.29-11.43) 01/08/23 05:56 RBC 3.94 10^6/uL (3.85-5.65) 01/08/23 05:56 Hgb 12.50 g/dL (11.27-16.99) 01/08/23 05:56 Hct 37.7 % (36-47) 01/08/23 05:56 MCV 95.7 fl (85-98) 01/08/23 05:56 MCH 31.7 pg (27-33) 01/08/23 05:56 MCHC 33.2 g/dL (30-55) 01/08/23 05:56 RDW 11.9 % (12.1-15.1) L 01/08/23 05:56 Plt Count 182 10^3/cmm (157-399) 01/08/23 05:56 MPV 10.8 fL (7.4-10.4) H 01/08/23 05:56 Neut % (Auto) 88.4 % 01/08/23 05:56 Lymph % (Auto) 5.5 % 01/08/23 05:56 [place] % (Auto) 5.6 % 01/08/23 05:56 Eos % (Auto) 0.0 % 01/08/23 05:56 Baso % (Auto) 0.1 % 01/08/23 05:56 Neut # (Auto) 6.32 10^3/uL (1.8-7.7) 01/08/23 05:56 Lymph # (Auto) 0.4 10^3/uL (0.8-4.8) L 01/08/23 05:56 [place] # (Auto) 0.4 10^3/uL (0.2-0.9) 01/08/23 05:56 Eos # (Auto) 0.0 10^3/uL (0.0-0.8) 01/08/23 05:56 Baso # (Auto) 0.0 10^3/uL (0.0-0.1) 01/08/23 05:56 Nucleated RBC % (auto) 0 % 01/08/23 05:56 Nucleated RBCs # 0.0 /100WBC 01/08/23 05:56 PT 13.30 SECONDS (12.1-14.9) 01/07/23 17:28 INR 0.98 (0.8-1.2) 01/07/23 17:28 Sodium 138 mmol/L (136-145) 01/08/23 05:56 Potassium 4.5 mmol/L (3.5-5.1) 01/08/23 05:56 Chloride 105 mmol/L (98-107) 01/08/23 05:56 Carbon Dioxide 24 mmol/L (22-29) 01/08/23 05:56 Anion Gap 13.5 (5-19) 01/08/23 05:56 BUN 11 mg/dL (8-23) 01/08/23 05:56 Creatinine 0.6 mg/dL (0.5-0.9) 01/08/23 05:56 GFR Calculation 99.7 mL/min (90-130) 01/08/23 05:56 Glucose 146 mg/dL (65-115) H 01/08/23 05:56 POC Glucose 115 mg/dL (70-110) H 01/07/23 20:27 Calculated Osmolality 288 mOsm/kg (285-295) 01/08/23 05:56 Calcium 8.7 mg/dL (8.5-10.5) 01/08/23 05:56 Total Bilirubin 0.5 mg/dL (0.15-1.2) 01/08/23 05:56 AST 24 U/L (0-32) 01/08/23 05:56 ALT 16 U/L (0-33) 01/08/23 05:56 Alkaline Phosphatase 29 U/L (35-105) L 01/08/23 05:56 Total Protein 6.2 g/dL (6.6-8.7) L 01/08/23 05:56 Albumin 3.6 g/dL (3.5-5.2) 01/08/23 05:56 Globulin 2.6 g/dL (1.3-4.6) 01/08/23 05:56 Vitals Last Vital Signs Temp 98.0 F 01/08/23 07:33 Pulse 73 01/08/23 07:33 Resp 18 01/08/23 08:00 BP 102/57 01/08/23 07:33 Pulse Ox 95 01/08/23 07:33 O2 Del Method Room Air 01/08/23 07:33 O2 Flow Rate 3 01/07/23 19:20 Discharge Plan Discharge Patient Disposition: Home Condition: Stable Prescriptions: New hydrocodone-acetaminophen 10-325 mg tablet 1 tab PO Q6H PRN (Reason: pain) Qty: 28 0RF Rx Instructions: Take one tablet by mouth every 6 hours as needed for pain cyclobenzaprine 10 mg tablet 10 mg PO Q8H Qty: 21 0RF Rx Instructions: Take one tablet by mouth every 8 hours as needed for muscle spasm pain ondansetron 4 mg tablet,disintegrating 4 mg PO Q8H 5 Days Qty: 15 0RF sennosides [senna] 8.6 mg tablet 8.6 mg PO DAILY PRN (Reason: constipation) Qty: 14 0RF Rx Instructions: as needed for constipation Continued levothyroxine [Synthroid] 112 mcg tablet 112 mcg PO QAM ezetimibe 10 mg tablet 10 mg PO BEDTIME rosuvastatin 40 mg tablet 40 mg PO BEDTIME Calcium 500 500 mg calcium (1,250 mg) Tablet 500 mg PO QAM Vitamin D3 25 mcg (1,000 unit) Capsule 1,000 unit PO BEDTIME Discharge Orders: Discharge Order (Routine); Ordered 01/08/23 Ordered By: Adelita Alex Other Ambulatory Orders: DME: [facility] (Order) Location: None Selected Ordered By: Prasanth Shannon Discharge Diet: Usual diet Discharge Activity: Resume usual activity Patient Instructions: Opioid Safety Discharge Attestations Time Spent in Discharge Care*: greater than 30 min Quality Metrics Clinical Quality Measures [ No reported AMI, CVA or VTE this stay] Coding Level of Care Code Acute Code for Chg Fwd Diagnoses Closed right tibial fracture S82.201A Closed right fibular fracture S82.401A Pain in right ankle M25.571
== END 2023-01-08 14:45 | disposition home or self-care (01) ==
LOC: ER 15:37 → OR 16:41 → MEDSURG 18:56
PROVIDERS: Podiatrist Foot & Ankle Surgery; Admitting Provider Student in an Organized Health Care Education/Training Program; Emergency Provider Emergency Medicine; Visit Provider Student in an Organized Health Care Education/Training Program
PROC: (CPT 20692; principal; 2023-01-07 17:30)
DX: S82.201A Unspecified fracture of shaft of right tibia, initial encounter for closed fracture (principal); S82.401A Unspecified fracture of shaft of right fibula, initial encounter for closed fracture; W23.0XXA Caught, crushed, jammed, or pinched between moving objects, initial encounter; Y93.52 Activity, horseback riding; E78.5 Hyperlipidemia, unspecified; E03.9 Hypothyroidism, unspecified
CPT/HCPCS: 20692; 36415; 36416; 71045; 72040; 72070; 72100; 73590; 73700; 76000; 80053; 82962; 85025; 85610; 93005; 96374; 96375; 97110; 97116; 97161; 99285; C1713; G0378; J0330; J0690; J1100; J2175; J2405; J2704; J2765; J2795; J3010; J3490; J7030